=== PATIENT | male | born 1990 ===

== ENCOUNTER 2016-07-13 20:20 | Emergency (ER) | payer OTHER ==
[2016-07-13 23:17] LABS: URINE BILIRUBIN NEGATIVE (NEGATIVE); URINE BLOOD NEGATIVE (NEGATIVE); URINE GLUCOSE (UA) NEGATIVE (NEGATIVE); URINE LEUKOCYTE ESTERASE NEGATIVE (NEGATIVE); URINE NITRITE NEGATIVE (NEGATIVE); URINE PROTEIN NEGATIVE (NEGATIVE); URINE UROBILINOGEN NORMAL (0-1 mg/dl)
[2016-07-13 23:27] LABS: URINE APPEARANCE CLEAR; URINE COLOR DARK YELLOW
[2016-07-14] MEDS ORDERED: ACETAMINOPHEN 325 MG TABLET ONE ×2 (00:44→00:45)
== END 2016-07-14 00:58 | disposition home or self-care (01) ==
LOC: ED 20:20
DX: R55 Syncope and collapse (principal)
CPT/HCPCS: 81003; 87804; 99282; 82962; 99283; A9270 ×2